=== PATIENT | male | born 1980 | race Two or more races ===

== ENCOUNTER 2017-11-19 12:35 | Outpatient (CLI) | payer OTHER | END 2017-11-19 15:02 | disposition home or self-care (01) | LOC: RAD 12:35 | DX: M25.551 Pain in right hip (principal); M25.561 Pain in right knee; M17.0 Bilateral primary osteoarthritis of knee ==

== ENCOUNTER → 2017-12-03 | Outpatient (CLI) | payer OTHER | END | disposition home or self-care (01) | LOC: SONOGRAMA 09:27 | DX: M25.561 Pain in right knee (principal); M17.0 Bilateral primary osteoarthritis of knee ==